=== PATIENT | female | born 1930 | race Caucasian/White ===

== ENCOUNTER 2016-06-26 13:49 | Emergency (ER) | payer MEDICARE, OTHER ==
[2016-06-26] MEDS ORDERED: IOPAMIDOL 370 (76%) 100 ML VIAL IV ONE (13:50)
[2016-06-26 14:54] LABS: ABSOLUTE NEUTROPHIL COUNT 5.7 K/mm3 (1.8-7.7); BASO % 0.4 % (0.2-1.0); EOS # 0.2 (0.0-0.5); EOS % 1.9 % (0.9-2.9); HEMATOCRIT 38.1 % (37.0-47.0); HEMOGLOBIN 12.3 gm/l (12.0-16.0); IMM NEUT% 0.2 % (0-1); LYMPH # 1.9 (1.0-4.8); LYMPH % 22.3 % (15-45); MEAN CELL VOLUME 100.5 fl (81.0-99.0); MEAN CORPUSCULAR HEMOGLOBIN 32.5 pg (27.0-31.0); MEAN CORPUSCULAR HGB CONC 32.3 g/dl (33.0-37.0); MEAN PLATELET VOLUME 10.4 fl (7.4-10.4); MONO # 0.6 (0.0-0.8); MONO % 6.7 % (4-12); NEUT % 68.5 % (43-75); PLATELET COUNT 228 K/mm3 (130-400); RED CELL DISTRIBUTION WIDTH 15.1 % (11.5-14.5)
[2016-06-26 15:14] LABS: ALBUMIN 3.2 gm/dL (3.5-5.7)
--- NOTE | 2016-06-26 15:14 | RAD ---
CHEST - 2 VIEWS COMPARISON: Chest 2 views, 05/18/2016 HISTORY: Shortness breath and fluid retention. FINDINGS: Views: Frontal and lateral chest Lungs: Normal Heart and vessels: Mild cephalization of pulmonary vessels. Trachea and bronchi: Normal Mediastinum and latha: Normal Costophrenic sulci: Normal Chest wall and bones: No acute finding. Spondylosis and scoliosis. Upper abdomen: Normal. IMPRESSION: Mild cephalization of the pulmonary vessels, evidence of mild pulmonary vascular congestion.
[2016-06-26 15:20] LABS: TROPONIN I < 0.01 ng/ml (0.0-0.06)
[2016-06-26 15:24] LABS: CKMB ISOENZYME 2.9 ng/ml (0.6-6.3)
--- NOTE | 2016-06-26 18:52 | CT ---
Name: ALEX GAY Exam: CT Angiogram of the chest with contrast Comparison: 02/26/2016 Clinical History: Shortness of breath. Elevated d-dimer. Procedure: Helical CT using multidetector technique was applied to the chest during rapid intravenous administration of 80 cc Isovue-[id number]. MIP reconstructions were obtained on the CT scanner. Automated dose reduction technique was used to minimize patient radiation dose. Findings: CT angiogram of the chest (contrast enhanced): Heart is enlarged. There is no pericardial effusion. There is atherosclerosis of normal caliber aorta. There is normal 3 great vessel arrangement. Injection is made via the right. There is no suspicious axillary adenopathy. There are shotty reactive lymph nodes within the mediastinum. Small amount of hilar lymph tissue is identified bilaterally. Large airways are clear. There is no pulmonary embolus. This is a hypoventilatory exam with vascular crowding. There is a small amount of patchy increased density within both lungs some of which is scar and some of which represents a small amount of atelectasis or infiltrate. In the posterior segment of the right upper lobe, there is a 7 mm cavitary lesion which is slightly increased in size from the prior there is no pleural effusion or pneumothorax. Multilevel degenerative disease of the spine is present. Near the gallbladder fossa, there is a 1.7 cm cyst. Multiple gallstones are identified. Impression: 1. No pulmonary embolus 2. Cardiomegaly and vascular congestion 3. Mild patchy increased density within the lungs. This may represent chronic failure, atelectasis or infiltrate. Findings are similar to the prior exam from 02/26/2016 therefore chronic inflammatory process is a consideration as well. 4. 7 mm possible cavitary lesion within the posterior segment of the right upper lobe. Slightly more prominent than on the prior exam. This could be infectious or neoplastic. Tuberculosis is not excluded. 5. Hepatic cysts 6. Cholelithiasis Note:The above report was uploaded to [facility]'s electronic medical records system at 1847 hours.
[2016-06-26] MEDS ORDERED: FUROSEMIDE 20 MG TABLET ONE (19:27)
--- NOTE | 2016-06-26 21:14 | US ---
Name: ALEX GAY Exam: Venous ultrasound of both legs Comparison: None Clinical history: Shortness breath. Positive d-dimer. Swelling. Findings:Deep veins of the both legs were evaluated with ultrasound using real-time, color flow doppler and doppler analysis. Deep veins are compressible. There is no echogenic intraluminal filling defect. Blood flow responds appropriately to respiratory variation and augmentation on color doppler and spectral analysis. There is no suspicious fluid collection or mass. Impression: 1. No ultrasound evidence for DVT in the right leg 2. No ultrasound evidence for DVT in the left leg Note: The above report was uploaded to [facility]'s electronic medical records system at 2108 hours.
[2016-06-29 01:58] LABS: QUANTIFERON GOLD TB Negative (()); TB - NIL -0.005 IU/mL (())
== END 2016-06-26 22:15 | disposition home or self-care (01) ==
LOC: ED 13:49
DX: R91.1 Solitary pulmonary nodule (principal); I50.9 Heart failure, unspecified; J45.909 Unspecified asthma, uncomplicated
CPT/HCPCS: 86480; 83880; 85379; 85025; 82553; 80053; 84484; 71020; 71275; 99284 ×2; 93970; A9270; Q9967